=== PATIENT | male | born 1965 | race Caucasian/White ===

== ENCOUNTER 2016-07-12 07:08 | Emergency (ER) | payer OTHER, MEDICARE ==
[~2016-07-12] VITALS: Ht 162.6 cm; Wt 63.5 kg
[~2016-07-12 07:08] MED LIST: ATORVASTATIN CA20 M1 PO; BENZTROPINE MESY2 M1 PO; HALOPERIDOL5 MG PO; KEFLEX 250MG C250 MG PO; LISINOPRIL40 M1 PO; OMEPRAZOLE40 M1 PO; TRAMADOL HCL50 M1 PO; VICODIN5-300 PO; ZANTAC150 M1 PO
[2016-07-12 07:10] VITALS: BP 155/99
--- NOTE | 2016-07-12 07:39 | ED THROAT/DENTAL COMPLAINT ---
History of Present Illness General Chief Complaint: Sore Throat, Dental Pain Stated Complaint: SORE THROAT Source: patient, old records Exam Limitations: no limitations Vital Signs & Intake/Output Vital Signs & Intake/Output Vital Signs Date Time Temp Pulse Resp B/P Pulse O2 O2 Flow FiO2 Ox Delivery Rate 07/12 0710 97.7 102 18 155/99 96 Room Air Allergies Coded Allergies: NO KNOWN ALLERGIES (10/19/15) Reconcile Medications Atorvastatin Calcium 20 MG TABLET 1 TAB PO DAILY CHOLESTROL (Reported) Benztropine Mesylate 2 MG TABLET 1 TAB PO QPM MENTAL HEALTH (Reported) Haloperidol 5 MG TABLET 5 TAB PO QPM MENTAL HEALTH (Reported) Lisinopril 40 MG TABLET 1 TAB PO DAILY HEART (Reported) Omeprazole 40 MG CAPSULE.DR 1 CAP PO DAILY ACID REFLUX Ranitidine HCl (Zantac) 150 MG TABLET 1 TAB PO BID ACID REFLUX Tramadol HCl 50 MG TABLET 1 TAB PO 4 TIMES/DAY PAIN (Reported) Triage Note: 51 Y/O MALE C/O SORE THROAT SINCE SAT. HAS DOCTORS APPT TODAY AT 1140. QUICK STREP SENT, AFEBRILE. Triage Nurses Notes Reviewed? yes HPI: Patient presents for evaluation of a sore throat. Onset of symptoms was gradual on Monday. Getting last night the patient felt tongue swelling and right ear pain. Symptoms have been severe constant and getting worse and persisted here in the emergency department. He tried NyQuil without relief. Patient states that it is in full to swallow. He has a decreased appetite. Patient felt warm yesterday who may or may not have had a low-grade fever. No known ill contacts and no recent travel. The patient states he is beginning to have trouble talking. Past History Travel History Traveled to [place] past 21 day No Medical History Any Pertinent Medical History? 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 No Review of Systems Review of Systems Constitutional: Reports: no symptoms. EENTM: Reports: see HPI. Respiratory: Reports: no symptoms. Cardiovascular: Reports: no symptoms. GI: Reports: no symptoms. Genitourinary: Reports: no symptoms. Musculoskeletal: Reports: no symptoms. Skin: Reports: no symptoms. Neurological/Psychological: Reports: no symptoms. Hematologic/Endocrine: Reports: no symptoms. Immunologic/Allergic: Reports: no symptoms. All Other Systems: Reviewed and Negative Physical Exam Physical Exam Mouth/Throat: SEE BELOW Comments: Gen.: Well-nourished, well-developed, no acute respiratory distress. Head: Normocephalic, atraumatic. Eyes: Normal inspection bilaterally Ears: Normal inspection bilaterally, right ear: TM and canal normal Nose: Normal inspection Throat/mouth : No oropharyngeal erythema or exudates. Mildly edematous uvula. Tongue appears normal. Neck: Supple, full range of motion, no goiter, mild anterior cervical lymphadenopathy Heart: Regular rate and rhythm, no murmurs rubs or gallops Lungs: Clear to auscultation bilaterally with normal air entry Chest: Nontender Back: Normal range of motion Abdomen: Soft, nontender, nondistended, normal bowel sounds Extremities: Normal range of motion grossly, equal radial pulses, no cyanosis clubbing or edema Neurologic: Cranial nerves grossly intact, speech is clear Skin: warm and dry Psychiatric: Calm, cooperative, no apparent delusions or hallucinations Lymphatic:: Mild cervical lymphadenopathy Core Measures ACS in differential dx? No Severe Sepsis Present: No Septic Shock Present: No Progress Differential Diagnosis: Ludwigs angina, odontogenic abscess, reid-tonsillar abscess, strep pharyngitis, VIRAL uri Plan of Care: Orders Procedure Date/time Status THROAT CULTURE W/QUICK STREP 07/12 0709 Active Departure Departure Disposition: HOME OR SELF CARE Condition: Stable Clinical Impression Primary Impression: Viral pharyngitis Referrals: UNKNOWN (PCP/Family) Additional Instructions: Maintain a good fluid intake. Ibuprofen 600 mg every 6 hours as needed for pain. Bromfed DM as needed for cough or cold symptoms. Follow-up with your primary care doctor if not improved in 5 days. Return if any concerns or sudden worsening. Departure Forms: Customer Survey General Discharge Information Prescriptions: Current Visit Scripts Ibuprofen 1 TAB PO Q6P PRN SORE THROAT/FEVER #28 TAB with food Brompheniramine/Pseudoephed/Dm (Bromfed Dm Cough Syrup) 10 ML PO Q6P PRN COUGH/ COLD SYMPTOMS #240 ML
[2016-07-12] MEDS ORDERED: BROMFED DM COU118 M1 PO (08:13)
[2016-07-12] MEDS ORDERED: IBUPROFEN600 M1 PO (08:13)
== END 2016-07-12 08:18 ==
LOC: ERH 07:08
DX: J02.8 Acute pharyngitis due to other specified organisms (principal); F17.210 Nicotine dependence, cigarettes, uncomplicated

== ENCOUNTER 2016-08-28 09:39 | Emergency (ER) | payer OTHER, MEDICARE ==
[~2016-08-28] VITALS: Ht 162.6 cm; Wt 86.2 kg
[~2016-08-28 09:39] MED LIST changes: +BROMFED DM COU118 M1 PO; +IBUPROFEN600 M1 PO
[2016-08-28 09:54] VITALS: BP 127/83
[2016-08-28] MEDS ORDERED: CYCLOBENZAPRINE5 M2 PO (10:00)
[2016-08-28] MEDS ORDERED: NAPROSYN500 M1 PO (10:00)
--- NOTE | 2016-08-28 10:00 | ED NECK/BACK PAIN COMPLAINT ---
History of Present Illness General Chief Complaint: Low Back Pain/Injury Stated Complaint: LOW BACK PAIN Source: patient Exam Limitations: no limitations Vital Signs & Intake/Output Vital Signs & Intake/Output Vital Signs Date Time Temp Pulse Resp B/P Pulse O2 O2 Flow FiO2 Ox Delivery Rate 08/28 0954 97.0 100 20 127/83 97 Room Air Allergies Coded Allergies: NO KNOWN ALLERGIES (10/19/15) Reconcile Medications Atorvastatin Calcium 20 MG TABLET 1 TAB PO DAILY CHOLESTROL (Reported) Benztropine Mesylate 2 MG TABLET 1 TAB PO QPM MENTAL HEALTH (Reported) Cyclobenzaprine HCl 5 MG TABLET 1 TAB PO TIDPRN PRN muscle spasms Haloperidol 5 MG TABLET 5 TAB PO QPM MENTAL HEALTH (Reported) Lisinopril 40 MG TABLET 1 TAB PO DAILY HEART (Reported) Naproxen (Naprosyn) 500 MG TABLET 1 TAB PO BID PRN pain and inflammation Omeprazole 40 MG CAPSULE.DR 1 CAP PO DAILY ACID REFLUX Ranitidine HCl (Zantac) 150 MG TABLET 1 TAB PO BID ACID REFLUX Tramadol HCl 50 MG TABLET 1 TAB PO 4 TIMES/DAY PAIN (Reported) Triage Note: PT C/O PULLED MUSCLE IN LEFT LOWER BACK SINCE YESTERDAY. STATES HE TURNED THE WRONG WAY Triage Nurses Notes Reviewed? yes HPI: This patient is a 51-year-old male who presented to the emergency department today for evaluation of a muscle strain. The patient reported that last night when he was sleeping he rolled over wrong and feels like he pulled a muscle. He reported that he feels 10 out of 10, nonradiating, constant pain which is worse with certain movements in his left mid back. No alleviating factors. The patient denied any numbness or tingling in his extremities, neck pain, headaches , visual changes, bowel or bladder incontinence, saddle paresthesia, chest pain, or difficulty breathing. No abdominal pain. (MICHEAL CORREA,ALFRED) Past History Travel History Traveled to [place] past 21 day No Medical History Any Pertinent Medical History? 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 No (ALFRED BURTON PA-C) Review of Systems Review of Systems Constitutional: Reports: no symptoms. Eyes: Reports: no symptoms. Ears, Nose, Throat, Mouth: Reports: no symptoms. Respiratory: Reports: no symptoms. Cardiovascular: Reports: no symptoms. Gastrointestinal/Abdominal: Reports: no symptoms. Musculoskeletal: Reports: see HPI. Skin: Reports: no symptoms. Neurological/Psychological: Reports: no symptoms. All Other Systems: Reviewed and Negative (ALFRED BURTON PA-C) Physical Exam Physical Exam Neck: normal inspection, supple, full range of motion, normal alignment Comments: Well-developed well-nourished person in no acute distress HEENT: Normal EENT exam, head normocephalic, moist mucous membranes Back: Normal gait. No bony or muscular deformities. Normal inspection. No midline tenderness. Negative straight leg raise bilaterally. Tenderness to palpation over the left thoracic paraspinal musculature with muscular spasm noted Respiratory: No respiratory distress. Speaking in full sentences Extremity: Normal and equal pulses Neuro: Alert oriented x3, cranial nerves II through XII grossly intact. Skin: No appreciable rash on exposed skin, skin is warm and dry. Psych: Mood and affect is normal, memory and judgment is normal. (ALFRED BURTON PA-C) Progress Differential Diagnosis: cauda equina syn, herniated disc, myofascial strain, pyelo/UTI, sciatica, spinal cord inj, thoracic outlet syn, T/L spine injury, ureterolithiasis Plan of Care: This patient is a 51-year-old male who presented to the emergency department today for evaluation of back pain. Based on this patient's history and physical examination, likely muscular strain. No midline tenderness. No bowel or bladder incontinence. No saddle paresthesia. My suspicion for cauda equina syndrome is low at this time. Negative straight leg raise bilaterally leads me to believe that the risk for disc herniation is low at this time. Muscular spasm was noted on physical examination as well as point tenderness over the left thoracic paraspinal musculature. He is stable to be discharged home with outpatient supportive management of his symptoms. (ALFRED BURTON PA-C) Departure Departure Disposition: HOME OR SELF CARE Condition: Stable Clinical Impression Primary Impression: Muscle strain Referrals: UNKNOWN (PCP/Family) Additional Instructions: Take Flexeril as prescribed for muscle relaxation. Take naproxen as prescribed for pain and inflammation. Rest and avoid any strenuous activity or heavy lifting. Gentle stretching. You may apply ice or heat to the affected area as needed. Return for any worsening symptoms or concerns. Departure Forms: Customer Survey General Discharge Information Prescriptions: Current Visit Scripts Cyclobenzaprine HCl 1 TAB PO TIDPRN PRN muscle spasms #10 TAB Naproxen (Naprosyn) 1 TAB PO BID PRN pain and inflammation #20 TAB (ALFRED BURTON PA-C) PA/SEISMIC COMPUTER Co-Sign Statement Statement: ED Attending supervision documentation- [] I saw and evaluated the patient. I have also reviewed all the pertinent lab results and diagnostic results. I agree with the findings and the plan of care as documented in the PA's/SEISMIC COMPUTER's documentation. x I have reviewed the ED Record and agree with the PA's/SEISMIC COMPUTER's documentation. [] Additions or exceptions (if any) to the PAs/SEISMIC COMPUTER's note and plan are summarized below: [] (ADWOA MEEHAN,EMMIE)
== END 2016-08-28 10:04 ==
LOC: ERH 09:39
DX: S39.012A Strain of muscle, fascia and tendon of lower back, initial encounter (principal); X58.XXXA Exposure to other specified factors, initial encounter

== ENCOUNTER 2016-09-10 11:10 | Emergency (ER) | payer OTHER, MEDICARE ==
[~2016-09-10] VITALS: Ht 162.6 cm; Wt 87.5 kg
[~2016-09-10 11:10] MED LIST changes: +CYCLOBENZAPRINE5 M2 PO; +NAPROSYN500 M1 PO
--- NOTE | 2016-09-10 11:26 | ED GI/GU/ABDOMINAL COMPLAINT ---
History of Present Illness General Chief Complaint: General Adult Stated Complaint: HEARTBURN Source: patient, old records Exam Limitations: no limitations Allergies Coded Allergies: NO KNOWN ALLERGIES (10/19/15) Reconcile Medications Atorvastatin Calcium 20 MG TABLET 1 TAB PO DAILY CHOLESTROL (Reported) Benztropine Mesylate 2 MG TABLET 1 TAB PO QPM MENTAL HEALTH (Reported) Haloperidol 5 MG TABLET 5 TAB PO QPM MENTAL HEALTH (Reported) Lisinopril 40 MG TABLET 1 TAB PO DAILY HEART (Reported) Omeprazole 20 MG TABLET.DR 1 TAB PO DAILY GERD Pantoprazole Sodium 40 MG TABLET.DR 1 TAB PO DAILY GI (Reported) Tramadol HCl 50 MG TABLET 1 TAB PO 4 TIMES/DAY PAIN (Reported) Triage Note: PT STATES HE IS HAVING BURNING IN THE EPIGASTRIC REGION. PT STATES THIS HAS HAPPEND BEFORE AND HE CAME HERE AND WAS GIVEN A GI COCKTAIL AND IT WENT AWAY. PT STATES HE RAN OUT OF HIS GERD MEDS AND HIS DR. WON'T REFILL UNTIL IT IS TIME. Triage Nurses Notes Reviewed? yes Onset: Abrupt Timing: recent history Quality/Severity: aching, burning Severity Numbers: 5 Location: epigastric Radiation: no radiation Prior Abdominal Problems: similar symptoms (gerd) Modifying Factors: Worsens With: eating. Associated Symptoms: denies HPI: 51-year-old male with history of hypertension, reflux presents emergency room complaining of intermittent nature sudden onset epigastric burning abdominal pain is nonradiating for the past 1 week. He states the symptoms only occur after eating. Patient reports these episodes of abdomen the past which he is came here and was given GI cocktail which has resolved his symptoms. He states he had an endoscopy performed last year. He denies any chest pain shortness of breath dizziness lightheadedness palpitations. He denies any other abdominal pain. The patient is an active tobacco user, he drinks alcohol socially last was 2 days ago. The pain is worse immediately after eating or laying flat. He states he ran out of the mother resolved she was on the past which helped with his symptoms no fever no chills. (MYRA MARTINEZ) Vital Signs & Intake/Output Vital Signs & Intake/Output Vital Signs Date Time Temp Pulse Resp B/P Pulse O2 O2 Flow FiO2 Ox Delivery Rate 09/10 1300 98.7 80 20 136/91 100 Room Air 09/10 1216 97.8 88 22 126/78 96 Room Air 09/10 1115 97.0 99 16 136/81 96 Room Air Past History Travel History Traveled to [place] past 21 day No Medical History Any Pertinent Medical History? 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 No (MYRA MARTINEZ) Review of Systems Review of Systems Constitutional: Reports: see HPI. All Other Systems: Reviewed and Negative Comments Review of systems: See HPI, All other systems negative. Constitutional, no chills no fever, no malaise HEENT: no sore throat no congestion, no ear pain Cardiovascular: No chest pain , no palpitation Skin, no jaundice no rashes, no change in skin Respiratory: No dyspnea no cough no sputum no hemoptysis GI: No nausea no vomiting, no diarrhea, no bloating/constipation : No dysuria No hematuria, Muscle skeletal: No joint pain, no joint swelling, no back pain, no neck pain, Neurologic: No numbness no confusion, no headache Psych: No stress Heme/endocrine: No bruising no bleeding Immunology: No lymphadenopathy (MYRA MARTINEZ) Physical Exam Physical Exam Gastrointestinal: soft, tenderness (epigastric) Comments: Well-developed well-nourished person in no acute distress HEENT: Normal EENT exam; PERRL, EOMI, HEAD is atraumatic. moist mucous membranes. Neck: Supple, no lymphadenopathy, normal range of motion Back: Nontender, no CVA tenderness. Full range of motion Cardiovascular: Regular rate and rhythms no murmurs rubs Respiratory: Chest nontender.There were no bony deformities, no asymmetry. No respiratory distress. Patient speaking in full complete sentences. Breath sounds clear to auscultation bilaterally: NO W/R/R Abdomen: Soft, epigastirc tender, no ruq tenderness, neg murphys, nondistended, no appreciable organomegaly. Normal bowel sounds. No rebound/guarding, No ascites. Extremity: No edema, full range of motion of extremities Neuro: Alert oriented x3, motor sensory normal, There were no obvious focal neurologic abnormalities. Skin: No appreciable rash on exposed skin, skin is warm and dry. no jaundice, no diaphoresis Psych: Mood and affect is normal, memory and judgment is normal. Core Measures ACS in differential dx? Yes Severe Sepsis Present: No Septic Shock Present: No (MYRA MARTINEZ) Progress Differential Diagnosis: AMI, biliary colic, bowel obstruction, colon cancer, diverticulitis, gastritis, hepatitis, hernia, ischemic bowel, inflamm bowel dis, pancreatitis, PUD/GERD, perforated viscous, SBO, ami, dissection Initial ED EKG: normal intervals, normal p-waves, normal QRS complex, normal sinus rhythm () Prior EKG: unchanged (2010) (MYRA MARTINEZ) Plan of Care: Orders Procedure Date/time Status EKG 09/10 1146 Active TROPONIN LEVEL 09/10 1126 Complete LIPASE 09/10 1126 Complete COMPREHENSIVE METABOLIC PANEL 09/10 1126 Complete CBC WITHOUT DIFFERENTIAL 09/10 1126 Complete AMYLASE 09/10 1126 Complete Laboratory Tests 09/10/16 1148: Anion Gap 12, Estimated GFR > 60, BUN/Creatinine Ratio 14.5, Glucose 98, Calcium 10.4 H, Total Bilirubin 0.5, AST 66 H, ALT 57, Alkaline Phosphatase 58, Troponin I < 0.01, Total Protein 7.3, Albumin 4.3, Globulin 3.0, Albumin/ Globulin Ratio 1.4, Amylase 42, Lipase 98, CBC w Diff NO MAN DIFF REQ, RBC 4.69 L, MCV 84.9, MCH 28.5, RDW 14.3, MPV 7.1 L, Gran % 62.2, Lymphocytes % 24.6, Monocytes % 10.1 H, Eosinophils % 2.4, Basophils % 0.7, Absolute Granulocytes 4.8, Absolute Lymphocytes 1.9, Absolute Monocytes 0.8 H, Absolute Eosinophils 0.2, Absolute Basophils 0, PUBS MCHC 33.6 Labs ordered old records. Patient medicated with GI cocktail omeprazole [address] mouth [address] Dr. Jacobs agrees with plan 1300 discussed with patient length all of his lab results patient states symptoms have resolved after GI cocktail. His symptoms have been intermittent in nature over the past 1 week, do not believe the patient will require further workup here or repeat troponin which the patient is in agreement with, I discussed him need to abstain from alcohol tobacco use, close follow-up with GI information was provided he feels comfortable this plan I answered all of his questions (MYRA MARTINEZ) Departure Departure Time of Disposition: 1257 Disposition: HOME OR SELF CARE Condition: Stable Clinical Impression Primary Impression: GERD (gastroesophageal reflux disease) Referrals: PUSHPA SHAH MD PATIENT HAS NO PRIMARY CARE DR (PCP/Family) Additional Instructions: FOLLOW UP WITH POLICE SHIFT COMMANDER DR SHAH IF SYMPTOMS PERSIST. OMEPRAZOLE DIRECTED. LIMIT FATTY SPICY GREASY FOODS. BLAND DIET. LIMIT TOBACCO CAFFEINE AND ALCOHOL USE. RETURN WITH ANY CONCERNS YOUR PRESCRIPTION IS AT [facility] Departure Forms: Customer Survey General Discharge Information Prescriptions: Current Visit Scripts Omeprazole 1 TAB PO DAILY #30 TAB (MYRA MARTINEZ) PA/RN PARALEGAL Co-Sign Statement Statement: ED Attending supervision documentation- [] I saw and evaluated the patient. I have also reviewed all the pertinent lab results and diagnostic results. I agree with the findings and the plan of care as documented in the PA's/RN PARALEGAL's documentation. [X] I have reviewed the ED Record and agree with the PA's/RN PARALEGAL's documentation. [] Additions or exceptions (if any) to the PAs/RN PARALEGAL's note and plan are summarized below: [] (ROCHELLE MEEHAN,KERRIE Rasheed)
[2016-09-10 12:02] LABS: ABSOLUTE BASOPHIL COUNT 0 /CUMM (0.0-0.2); ABSOLUTE EOSINOPHIL COUNT 0.2 /CUMM (0.0-0.7); ABSOLUTE GRANULOCYTE CT 4.8 /CUMM (1.4-6.5); ABSOLUTE LYMPH COUNT 1.9 /CUMM (1.2-3.4); ABSOLUTE MONOCYTE COUNT 0.8 /CUMM (0.10-0.60); BASOPHIL % 0.7 % (0.0-2.0); EOSINOPHIL % 2.4 % (0-5); GRANULOCYTE % 62.2 % (42.2-75.2); HEMATOCRIT 39.8 % (42-52); MEAN CORPUSCULAR HGB 28.5 PG (27.0-31.0); MEAN CORPUSCULAR HGB CONC 33.6 G/DL (33.0-37.0); MEAN CORPUSCULAR VOLUME 84.9 FL (80.0-94.0); MEAN PLATELET VOLUME 7.1 FL (7.4-10.4); PLATELET COUNT 340 /CUMM (130-400); RBC DISTRIBUTION WIDTH 14.3 % (11.5-14.5); RED BLOOD CELL CT 4.69 /CUMM (4.70-6.10); WHITE BLOOD CELL COUNT 7.6 /CUMM (4.8-10.8)
[2016-09-10] MEDS ORDERED: PANTOPRAZOLE SO40 M1 PO (12:30)
[2016-09-10] MEDS ORDERED: OMEPRAZOLE20 M3 PO (12:59)
[2016-09-10 13:00] VITALS: BP 136/91
== END 2016-09-10 13:04 ==
LOC: ERH 11:10
PROVIDERS: Physician Assistant Medical
DX: K21.9 Gastro-esophageal reflux disease without esophagitis (principal); R10.13 Epigastric pain
CPT/HCPCS: 93005; 93010